=== PATIENT | female | born 1990 | race Caucasian/White ===

== ENCOUNTER → 2016-07-15 | Outpatient (CLI) | payer BC ==
--- NOTE | 2016-07-15 17:08 | US ---
EXAMINATION TYPE: US OB anatomy transabd DATE OF EXAM: 07/15/2016 4:30 PM COMPARISON: NONE HISTORY: LGA TECHNIQUE: Transabdominal (TA) EXAM MEASUREMENTS: GESTATIONAL AGE / DATING Physician Established: (20 weeks/0 days) EDC: 12/02/2016 Dates by LMP: (20 weeks/0 days) EDC: 12/02/2016 Dates by First Scan: (19 weeks/6 days) EDC: 12/03/2016 Dates by Current Scan for: (18 weeks/6 days) EDC: 12/10/2016 SURVEY IUP: Single PLACENTA: Anterior PREVIA: No previa LOUIE: 12.0 cm Normal CERVICAL LENGTH (transabdominal: norm > 3.0cm): 3.1 cm BIOMETRY PRESENTATION: Variable LIE: Transverse lie with head maternal right BPD: 4.5 cm 19 weeks / 4 days HC: 16.4 cm 19 weeks / 1 days AC: 13.8 cm 19 weeks / 1 days FL: 2.8 cm 18 weeks / 4 days ESTIMATED WEIGHT IN GRAMS: 265 grams ESTIMATED WEIGHT IN LBS/OZS: 0 lbs. 9 oz. WEIGHT PERCENTAGE BASED ON ESTABLISHED DATE: 6 % HC/AC: 1.19 FL/AC: 20 HEART RATE: 139 bpm RHYTHM: Normal ANATOMY SEEN (within normal limits): * Lateral Vent (< 1 cm) 0.7 cm * Cisterna Magna (< 1.1 cm) 0.2 cm * Nuchal Fold (< 0.6 cm) 0.2 cm * Cerebellum (varies with age) 2.0 cm Choroid Plexus (bilateral) Midline Falx Cavus Septi Pellucidi Four Chamber Heart Outflow tracts: LVOT/RVOT Stomach Situs Nose / Lips Diaphragm Kidneys (bilateral) --mildly prominent renal pelves Bladder Cord Insert Three Vessel Cord Longitudinal Spine Transverse Spine Arms (bilateral) Legs (bilateral) IMPRESSION: viable iup, growth at 6%, left msg for Ann Marie at office re: growth percentile
== END | disposition home or self-care (01) ==
LOC: RADUSWWP 16:00
PROVIDERS: ATTEND Obstetrics & Gynecology
DX: O36.62X0 Maternal care for excessive fetal growth, second trimester, not applicable or unspecified (principal); Z3A.20 20 weeks gestation of pregnancy
CPT/HCPCS: 76811

== ENCOUNTER → 2016-10-08 | Outpatient (CLI) | payer BC ==
--- NOTE | 2016-10-09 08:47 | US ---
EXAMINATION TYPE: US OB anatomy transabd DATE OF EXAM: 10/08/2016 COMPARISON: Previous exam second of July 2016 HISTORY: N28.89 DILATION OF OBDULIO RENAL PELVIS previous abnormal exam TECHNIQUE: Transabdominal pelvic ultrasound scanning EXAM MEASUREMENTS: GESTATIONAL AGE / DATING Physician Established: (32 weeks/1 days) EDC: 12/02/16 Dates by LMP: (32 weeks/1 days) EDC: 12/02/16 Dates by First Scan: (32 weeks/0 days) EDC: 12/03/16 Dates by Current Scan for: (31 weeks/ 2 days) EDC: 12/08/16 SURVEY IUP: Single PLACENTA: Anterior PREVIA: No previa LOUIE: 13.5 cm CERVICAL LENGTH (transabdominal: norm > 3.0cm): 3.2 cm BIOMETRY PRESENTATION: Vertex LIE: Longitudinal BPD: 8.0 cm 32 weeks / 1 days HC: 29.3 cm 32 weeks / 2 days AC: 28.3 cm 32 weeks / 2 days FL: 5.9 cm 30 weeks / 5 days ESTIMATED WEIGHT IN GRAMS: 1844 grams ESTIMATED WEIGHT IN LBS/OZS: 4 lbs. 1 oz. WEIGHT PERCENTAGE BASED ON ESTABLISHED DATE: 29 % HC/AC: 1.0 FL/AC: 20.9 HEART RATE: 137 bpm RHYTHM: Normal ANATOMY SEEN (within normal limits): Midline Falx Cavus Septi Pellucidi Four Chamber Heart Stomach Situs Nose / Lips Diaphragm Kidneys (bilateral) left dilation measures 0.9cm, right measures 0.6cm Bladder Three Vessel Cord Longitudinal Spine Transverse Spine ANATOMY NOT SEEN: * Lateral Vent (< 1 cm) cm * Cisterna Magna (< 1.1 cm) cm * Nuchal Fold (< 0.6 cm) cm * Cerebellum (varies with age) cm Choroid Plexus (bilateral) Cord Insert Arms (bilateral) Legs (bilateral) Outflow tracts: LVOT/RVOT Dilation of renal pelvis measurements above. IMPRESSION: Dilation of the renal pelves persists as described. Limited survey. Single viable intrauterine corresponding to ultrasound age 31 weeks 2 days with estimated date of delivery November, estimated weight has improved percentagewise as compared to prior
== END | disposition home or self-care (01) ==
LOC: RADUSWWP 15:39
PROVIDERS: ATTEND Obstetrics & Gynecology
DX: O99.89 Other specified diseases and conditions complicating pregnancy, childbirth and the puerperium (principal); N28.89 Other specified disorders of kidney and ureter; Z3A.31 31 weeks gestation of pregnancy
CPT/HCPCS: 76811

== ENCOUNTER → 2016-10-28 | Outpatient (CLI) | payer BC ==
--- NOTE | 2016-10-29 07:57 | US ---
EXAMINATION TYPE: US OB anatomy transabd DATE OF EXAM: 10/28/2016 COMPARISON: US HISTORY: N28.89 DILATION B/L RENAL PELVIS Dilation of bilateral renal pelvis TECHNIQUE: Transabdominal (TA) EXAM MEASUREMENTS: GESTATIONAL AGE / DATING Physician Established: (35 weeks/0 days) EDC: 12/02/2016 Dates by LMP: Unknown Dates by First Scan: (34 weeks/6 days) EDC: 12/03/2016 Dates by Current Scan for: (34 weeks/2 days) EDC: 12/07/2016 SURVEY IUP: Single PLACENTA: Anterior PREVIA: No previa LOUIE: 15.6 cm Normal CERVICAL LENGTH (transabdominal: norm > 3.0cm): 3.6 cm BIOMETRY PRESENTATION: Vertex BPD: 8.5 cm 34 weeks / 3 days HC: 31.1 cm 34 weeks / 5 days AC: 30.4 cm 34 weeks / 2 days FL: 6.6 cm 33 weeks / 6 days ESTIMATED WEIGHT IN GRAMS: 2386 grams ESTIMATED WEIGHT IN LBS/OZS: 5 lbs. 4 oz. HC/AC: 1.02 Normal FL/AC: 21.61 Normal HEART RATE: 143 bpm RHYTHM: Normal ANATOMY SEEN (within normal limits): Midline Falx Cavus Septi Pellucidi Outflow tracts: LVOT/RVOT Stomach Situs Nose / Lips Diaphragm Bladder Cord Insert Three Vessel Cord Legs (bilateral) ANATOMY SEEN (does not appear within normal limits): Kidneys (bilateral): right renal pelvis 0.9cm, left renal pelvis 0.9cm (bilateral) : There are dilate d renal pelves bilaterally. Follow-up is recommended. ANATOMY NOT SEEN: Due to advanced age, crowding * Lateral Vent (< 1 cm) cm * Cisterna Magna (< 1.1 cm) cm * Nuchal Fold (< 0.6 cm) cm * Cerebellum (varies with age) cm Choroid Plexus (bilateral) Four Chamber Heart Longitudinal Spine Transverse Spine Arms (bilateral) Viable single IUP measuring 34 weeks 2 days with a heart rate of 143bpm and an estimated delivery vanessa e of 12/07/2016, dilated bilateral renal pelvis. IMPRESSION: 1. Dilated renal pelves bilaterally. Follow-up is recommended. 2. Due to the age and there is limitation on small parts evaluation. 3. Single intrauterine gestation estimated at 34 weeks 2 days gestation. Cardiac activity measures 14 3 bpm. Calculated EDC is 12/07/2016 based on the current ultrasound measurements. Correlate this with her physician established EDC of 12/02/2016.
== END | disposition home or self-care (01) ==
LOC: RADUSWWP 15:39
PROVIDERS: ATTEND Obstetrics & Gynecology
DX: O99.89 Other specified diseases and conditions complicating pregnancy, childbirth and the puerperium (principal); N28.89 Other specified disorders of kidney and ureter; Z3A.34 34 weeks gestation of pregnancy
CPT/HCPCS: 76811

== ENCOUNTER 2016-12-02 08:01 | Inpatient (IN) | payer BC ==
[2016-12-07] MEDS ORDERED: CARBOPROST TROMETHAMINE 250 MCG/ML 1 ML AMP IM PRN (01:25)
[2016-12-07] MEDS ORDERED: OXYTOCIN 20 UNITS/1000 ML NS 1,000 ML IV SCH ×2 (01:25→06:00)
[2016-12-07] MEDS ORDERED: LIDOCAINE 1% (PF) 10 MG/ML (30 ML SDV) SQ PRN (01:25)
[2016-12-07] MEDS ORDERED: TERBUTALINE 1 MG/ML VIAL SQ PRN (01:25)
[2016-12-07] MEDS ORDERED: METHYLERGONOVINE 0.2 MG/ML 1 ML AMP IM PRN (01:25)
[2016-12-07] MEDS ORDERED: OXYTOCIN 10 UNIT/ML 1 ML VIAL IM PRN (01:25)
[2016-12-07 01:32] VITALS: BMI 36.2
[2016-12-07 01:41] LABS: Basophils % (A) 0 %; CH 30.5; CHCM 33.3; Eosinophils # (A) 0.1 k/uL (0-0.7); Eosinophils % (A) 1 %; HCT 36.7 % (34.0-46.0); HDW 2.57; HGB 12.1 gm/dL (11.4-16.0); Luc # (Auto) 0.33; Luc % (Auto) 3; Lymphocytes # (A) 1.4 k/uL (1.0-4.8); Lymphocytes % (A) 13 %; MCH 30.2 pg (25.0-35.0); MCHC 32.8 g/dL (31.0-37.0); Mean Platelet Volume 8.8; Monocytes # (A) 0.5 k/uL (0-1.0); Monocytes % (A) 5 %; Neutrophils # (A) 8.4 k/uL (1.3-7.7); Neutrophils % (A) 79 %; RBC 3.99 m/uL (3.80-5.40); RDW 13.7 % (11.5-15.5); WBC 10.7 k/uL (3.8-10.6); WBC (Perox) 10.68
[2016-12-07] MEDS: LACTATED RINGERS 1,000 ML IV SCH ×2 (01:45→02:24)
[2016-12-07] MEDS ORDERED: diphenhydrAMINE 50 MG/ML 1 ML VIAL IVP PRN ×2 (05:46)
[2016-12-07] MEDS ORDERED: LANOLIN CREAM 5 GM TUBE TOPICAL PRN (05:46)
[2016-12-07] MEDS ORDERED: WITCH HAZEL 1 EACH MED..PAD TOPICAL PRN (05:46)
[2016-12-07] MEDS ORDERED: ACETAMINOPHEN TAB 325 MG TAB PO PRN (05:46)
[2016-12-07] MEDS ORDERED: diphenhydrAMINE 50 MG CAP PO PRN (05:46)
[2016-12-07] MEDS ORDERED: HYDROCORTISONE 2.5% RECTAL CREAM 30 GM TUBE RECTAL PRN (05:46)
[2016-12-07] MEDS ORDERED: diphenhydrAMINE 25 MG CAP PO PRN (05:46)
[2016-12-07] MEDS ORDERED: ZOLPIDEM 5 MG TAB PO PRN (05:46)
[2016-12-07] MEDS ORDERED: SIMETHICONE 80 MG CHEWABLE PO PRN (05:46)
[2016-12-07] MEDS ORDERED: BENZOCAINE/MENTHOL SPRAY 1 GM/SPRAY AEROSOL TOPICAL PRN (05:46)
[2016-12-07] MEDS ORDERED: DIPH,PERTUS(ACELL)TETVAC-LF 0.5 ML VIAL IM ONE (06:36)
[2016-12-07] MEDS: IBUPROFEN 600 MG TAB PO PRN ×3 (06:46→23:00)
[2016-12-07] MEDS ORDERED: BUPIVACAINE (PF) 0.25% 25 ML, fentaNYL (PF) 200 MCG in SODIUM CHLORIDE 0.9% 71 ML EPIDURAL ONE (07:00)
[2016-12-07 07:27] VITALS: RESP 16
--- NOTE | 2016-12-07 08:39 | P.HPOB ---
History of Present Illness H&P Date: 12/07/16 Chief Complaint: Intrauterine at term Patient is a 18-year-old at 40 weeks 5 days gestation who ryes in active labor. She has been taking is rupture members earlier this evening and she is forest every 2-3 minutes with cervical change. She is dilated to 5 cm this time. Her course had been unremarkable and she reports that she has had a very easy in good . She voices no other complaints this morning and is again in active labor. Pertinent labs include A- blood type rubella was immune hepatitis B surface antigen and RPR were both negative. On physical exam vital signs are stable and afebrile. Heart regular, lungs clear, extremities without pain. Osteopathic exams unremarkable. Abdomen is soft gravid uterus is noted in the heart tones are in the 130s to 150s have been reactive. Assessment intrauterine at term. Plan expect spontaneous vaginal delivery. She plans to use epidural for analgesia. Past Medical History Past Medical History: No Reported History History of Any Multi-Drug Resistant Organisms: None Reported Past Surgical History: No Surgical Hx Reported Past Anesthesia/Blood Transfusion Reactions: No Reported Reaction Past Psychological History: No Psychological Hx Reported Smoking Status: Never smoker - Past Family History Mother Family Medical History: No Reported History Medications and Allergies Home Medications Medication Instructions Recorded Confirmed Type Pnv No.95/Ferrous Fum/Folic AC 1 each PO DAILY 12/07/16 12/07/16 History [ Multivitamin Tablet] Allergies Allergy/AdvReac Type Severity Reaction Status Date / Time No Known Allergies Allergy Verified 12/07/16 01:25 Exam Osteopathic Statement: *. No significant issues noted on an osteopathic structural exam other than those noted in the History and Physical/Consult. - Vital Signs Vital signs: Vital Signs Temp Pulse Resp BP Pulse Ox 12/07/16 07:30 78 16 12/07/16 07:10 97.2 F L 78 16 126/64 12/07/16 06:40 83 15 124/69 12/07/16 06:10 94 15 129/65 12/07/16 05:55 87 15 125/61 12/07/16 05:40 90 15 98/49 12/07/16 05:25 87 15 130/63 12/07/16 05:10 99 F 100 15 129/59 12/07/16 01:24 98.1 F 67 18 139/69 98 Intake and Output 12/06/16 12/07/16 12/07/16 22:59 06:59 14:59 Other: Weight 87.09 kg Results Result Diagrams: 12/07/16 01:30 Abnormal Lab Results - Last 24 Hours (Table) 12/07/16 Range/Units 01:30 WBC 10.7 H (3.8-10.6) k/uL Neutrophils # 8.4 H (1.3-7.7) k/uL
--- NOTE | 2016-12-07 08:40 | P.PROBDLV ---
Vaginal Delivery Note - . Vaginal Delivery Note: Patient progressed complete and pushing with spontaneous vaginal delivery of a viable male over an intact perineum. Following delivery of the head anterior posterior shoulders were easily delivered and a nuchal cord 1 was easily reduced. Once baby was fully delivered mouth nares were bulb suctioned and baby was placed on mother's abdomen where the umbilical cord was allowed to pulsate for 30 seconds prior to clamping and cutting. Once this was accomplished placenta was delivered intact. It is noted that she has bilateral vaginal wall lacerations which were repaired in running fashion with 3-0 Vicryl following 1% Xylocaine for analgesia. Following delivery both mother and baby are stable. scores were 8 and 9 at one and 5 minutes respectively and the weight was 7 lbs. 3 oz. Both mother and baby are stable following delivery.
[2016-12-07] MEDS ORDERED: Rhogam IMMUNE GLOBULIN 1,500 UNIT/1 ML IM ONE (17:32)
[2016-12-07] MEDS: SENNOSIDES-DOCUSATE SODIUM 1 EACH TAB PO SCH (21:51)
[2016-12-08] MEDS: IBUPROFEN 600 MG TAB PO PRN ×2 (05:05→12:01)
--- NOTE | 2016-12-08 06:37 | P.PNOBGVD ---
Subjective - Subjective Patient reports: Reports appetite normal, Reports voiding normally, Reports pain well controlled, Reports ambulating normally : doing well Objective - Latest Vital Signs Latest vital signs: Vital Signs Temp Pulse Resp BP 12/08/16 00:00 97.6 F 88 16 122/65 12/07/16 15:16 98.2 F 92 16 124/65 12/07/16 07:30 78 16 12/07/16 07:10 97.2 F L 78 16 126/64 12/07/16 06:40 83 15 124/69 Intake and Output 12/07/16 12/07/16 12/08/16 14:59 22:59 06:59 Other: # Voids 2 - Exam Lungs: bilateral: normal Chest: Normal S1, Normal S2 Extremities: Present: normal Abdomen: Present: normal appearance, soft Uterus: Present: normal, firm Assessment and Plan (1) Normal labor and delivery Narrative/Plan: day #1. Patient is resting without complaints wishes to go home. Vital signs are stable she is afebrile. Uterus is firm nontender she's having normal lochia. My impression is this is normal course. Plan is to continue routine care discharge home later today. Current Visit: Yes Status: Acute Code(s): O80 - ENCOUNTER FOR FULL-TERM UNCOMPLICATED DELIVERY SNOMED Code(s): 43914303
--- NOTE | 2016-12-08 06:39 | P.DS ---
Providers Date of admission: 12/07/16 01:01 Expected date of discharge: 12/08/16 Attending physician: Farooq Hay Primary care physician: Berta Dickerson - Discharge Diagnosis(es) (1) Normal labor and delivery Current Visit: Yes Status: Acute Hospital Course: Please see dictated H&P for intimate details of this patient's admission. Brief summary this is a pleasant 26-year-old 1 para 0 female 40-1/2 weeks gestation admitted to labor and delivery in active labor. Patient quickly goes on to have a vaginal delivery viable male . Please see dictated delivery note. her 1 patient without complaints she wishes to go home felt be stable for discharge home follow up with me in 6 weeks. Procedures: Normal spontaneous vaginal delivery. Patient Condition at Discharge: Good Plan - Discharge Summary New Discharge Prescriptions: New Ibuprofen [Motrin] 600 mg PO Q6HR PRN #40 tab PRN Reason: Mild Pain Or Fever >= 100.5 No Action Pnv No.95/Ferrous Fum/Folic AC [ Multivitamin Tablet] 1 each PO DAILY Discharge Medication List Pnv No.95/Ferrous Fum/Folic AC [ Multivitamin Tablet] 1 each PO DAILY [History] Ibuprofen [Motrin] 600 mg PO Q6HR PRN #40 tab 12/08/16 [Rx] Follow up Appointment(s)/Referral(s): Farooq Hay MD [STAFF PHYSICIAN] - 01/18/17 10:45 am Patient Instructions/Handouts: Vaginal Delivery (DC) Activity/Diet/Wound Care/Special Instructions: No intercourse or anything per vagina for 6 weeks. Please call if any fever, chills, excessive vaginal bleeding, and/or abdominal pain. Discharge Disposition: HOME SELF-CARE
[2016-12-08 09:26] VITALS: BP 114/68; PULSE 71; TEMP 98.1
[2016-12-08] MEDS: SENNOSIDES-DOCUSATE SODIUM 1 EACH TAB PO SCH (09:26)
== END 2016-12-08 16:45 | disposition home or self-care (01) | DRG 775 ==
LOC: 4FBP 12-07 01:01
PROVIDERS: ADMIT Obstetrics & Gynecology; ATTEND Obstetrics & Gynecology
PROC: 0UQGXZZ Repair Vagina, External Approach (ICD-10-PCS; principal; 2016-12-07)
PROC: 10E0XZZ Delivery of Products of Conception, External Approach (ICD-10-PCS; principal; 2016-12-07)
DX: O69.81X0 Labor and delivery complicated by cord around neck, without compression, not applicable or unspecified (principal); O71.4 Obstetric high vaginal laceration alone; Z37.0 Single live birth; Z3A.40 40 weeks gestation of pregnancy
CPT/HCPCS: 85025; 85461; 88307; 90471; 90715

== ENCOUNTER → 2019-05-17 | Outpatient (CLI) | payer BC ==
--- NOTE | 2019-05-18 04:41 | US ---
EXAMINATION TYPE: US transvaginal plus Dopplers DATE OF EXAM: 05/17/2019 COMPARISON: NONE CLINICAL HISTORY: 28-year-old female R10.2 Pelvic pain. TECHNIQUE: Transvaginal (TV). Color Doppler and spectral waveform analysis of the ovarian arteries and veins. Date of LMP: 3 WEEKS AGO FINDINGS: EXAM MEASUREMENTS: Uterus: 7.1 x 3.3 x 4.2 cm Endometrial Stripe: 0.6 cm Right Ovary: 3.1 x 2.3 x 2.0 cm for a volume of 7.5 mL. Left Ovary: 2.8 x 1.9 x 2.1 cm for a volume of 5.6 mL. 1. Uterus: Anteverted, wnl 2. Endometrium: wnl with trilaminar configuration. 3. Right Ovary: Prominent follicular changes present. 4. Left Ovary: Prominent follicular change is present. Spectral, color and waveform doppler imaging shows good arterial and venous flow within the ovaries ; there is no evidence for ovarian torsion. Some superimposed venous flow on the left. 5. Bilateral Adnexa: wnl 6. Posterior cul-de-sac: no free fluid IMPRESSION: 1. Numerous small follicles throughout the ovaries but with overall normal ovarian size. 2. No sonographic evidence for ovarian torsion. 3. Normal thickness endometrial stripe.
== END | disposition home or self-care (01) ==
LOC: RADUSWWP 16:17
PROVIDERS: ATTEND Obstetrics & Gynecology
DX: R10.2 Pelvic and perineal pain (principal)
CPT/HCPCS: 76830

== ENCOUNTER → 2020-10-27 | Outpatient (CLI) | payer BC ==
[2020-10-27 14:54] LABS: HCT 34.6 % (37.2-46.3); HGB 11.2 g/dL (12.0-15.0); MCH 32.1 pg (27.0-32.0); MCHC 32.4 g/dL (32.0-37.0); MCV 99.1 fL (80.0-97.0); Mean Platelet Volume 10.4 fL (9.5-12.2); Platelet Count 163 X 10*3/uL (140-440); RBC 3.49 X 10*6/uL (4.10-5.20); RDW 13.2 % (11.5-14.5)
== END | disposition home or self-care (01) ==
LOC: LABWHC1 08:30
PROVIDERS: ATTEND Obstetrics & Gynecology
DX: Z34.82 Encounter for supervision of other normal pregnancy, second trimester (principal)
CPT/HCPCS: 36415; 82950; 85027; 86850

== ENCOUNTER 2021-01-20 05:55 | Inpatient (IN) | payer BC ==
--- NOTE | 2021-01-19 07:11 | P.HPOB ---
History of Present Illness H&P Date: 01/19/21 Chief Complaint: Breech presentation for section This patient is a pleasant 30-year-old 2 para 1 female estimated date of confinement 01/25/2021 estimated gestational age 39-2/7 weeks who presents to labor and delivery for primary section due to persistent breech presentation. Patient's care has been uncomplicated with the exception of persistent breech. Patient I did discuss trial of version versus outright section and she wishes to proceed with section for delivery. Review of Systems Genitourinary: Reports Menstruation: Reports amenorrhea Past Medical History Past Medical History: Asthma Additional Past Medical History / Comment(s): Hx Childhood Asthma, no problems since. History of Any Multi-Drug Resistant Organisms: None Reported Past Surgical History: No Surgical Hx Reported Additional Past Surgical History / Comment(s): Jeff teeth extracted. Past Anesthesia/Blood Transfusion Reactions: No Reported Reaction Additional Past Anesthesia/Blood Transfusion Reaction / Comment(s): "Slight motion sickness - nausea only." Past Psychological History: Anxiety Smoking Status: Never smoker Past Alcohol Use History: None Reported Past Drug Use History: None Reported - Past Family History Mother Family Medical History: No Reported History Medications and Allergies Home Medications Medication Instructions Recorded Confirmed Type Pnv No.95/Ferrous Fum/Folic AC 1 each PO DAILY 12/07/16 01/12/21 History [ Multivitamin Tablet] Allergies Allergy/AdvReac Type Severity Reaction Status Date / Time No Known Allergies Allergy Verified 01/12/21 14:10 Exam - OBG Physical Exam Abdomen: bowel sounds normal, no diffuse tenderness, no bruit present, no guarding noted, no hepatomegaly, no splenomegaly, no mass Vulva: both: normal Vagina: normal moisture, no discharge Cervix: no lesion, no discharge Uterus: enlarged (Fundal height 39 cm) Results blood work shows she is A negative, rubella immune, RPR nonreactive, hepatitis B negative, Glucola was 109, group B strep was negative, ultrasounds shows normal growth but persistent breech presentation. Patient received RhoGAM on November 03 Assessment and Plan Assessment: This is a pleasant 30-year-old 2 para 1 female 39-2/7 weeks gestation who is admitted for primary section due to persistent breech presentation. Plan is primary low transverse section. I've discussed the surgery in detail with the patient including risks of infection, bleeding, possible injury to bowel, bladder, vessels, and/or other organs. All the patient's questions been answered and a written consent obtained. (1) 39 weeks gestation of Status: Acute Code(s): Z3A.39 - 39 WEEKS GESTATION OF SNOMED Code(s): 84121389 (2) Breech presentation Status: Acute Code(s): O32.1XX0 - MATERNAL CARE FOR BREECH PRESENTATION, UNSP SNOMED Code(s): 1298801 (3) Rh negative status during Status: Acute Code(s): O26.899 - OTH RELATED CONDITIONS, UNSPECIFIED TRIMESTER; Z67.91 - UNSPECIFIED BLOOD TYPE, RH NEGATIVE SNOMED Code(s): 938269498
[2021-01-20] MEDS ORDERED: LACTATED RINGERS 1,000 ML IV SCH (06:08)
[2021-01-20] MEDS ORDERED: CITRIC ACID-SODIUM CITRATE 15 ML CUP PO ONE (06:08)
[2021-01-20] MEDS ORDERED: LACTATED RINGERS 1,000 ML IV ONE (06:08)
[2021-01-20 07:05] LABS: Basophils % (A) 0 %; Eosinophils # (A) 0.1 k/uL (0-0.7); Eosinophils % (A) 1 %; HGB 12.6 gm/dL (11.4-16.0); Lymphocytes # (A) 0.9 k/uL (1.0-4.8); Lymphocytes % (A) 13 %; Mean Platelet Volume 8.1; Monocytes # (A) 0.4 k/uL (0-1.0); Monocytes % (A) 5 %; Neutrophils # (A) 5.3 k/uL (1.3-7.7); Neutrophils % (A) 77 %; Platelet Count 182 k/uL (150-450); RBC 3.82 m/uL (3.80-5.40); RDW 14.1 % (11.5-15.5); WBC 6.8 k/uL (3.8-10.6)
[2021-01-20] MEDS ORDERED: NALBUPHINE 10 MG/ML (1 ML AMP) ONE (07:46)
[2021-01-20] MEDS ORDERED: PHENYLEPHRINE-0.9% NACL SYG 1,000 MCG/10 ML SYRINGE ONE (07:46)
[2021-01-20] MEDS ORDERED: MORPHINE SULFATE (PF) 0.3 MG/0.3 ML SYR ONE (07:46)
[2021-01-20] MEDS ORDERED: OXYTOCIN 30 UNITS/500 ML NS BAG IV ONE (07:46)
[2021-01-20] MEDS ORDERED: ONDANSETRON 4 MG/2 ML VIAL ONE (07:46)
[2021-01-20] MEDS ORDERED: KETOROLAC 15 MG/ML 1 ML VIAL ONE (07:46)
--- NOTE | 2021-01-20 08:33 | P.OP ---
Date of Procedure: 01/20/21 Preoperative Diagnosis: #1: 39-3/7 week intrauterine . #2: Persistent breech presentation. Postoperative Diagnosis: Same, double footling breech Procedure(s) Performed: Primary low transverse section Anesthesia: spinal Surgeon: Farooq Hay Respiratory Therapy Director #1: Mau Champagne Estimated Blood Loss (ml): 500 Pathology: none sent Condition: stable Disposition: floor Indications for Procedure: Please see dictated H&P for intimate details of this patient's admission. Brief summary this pleasant 30-year-old 2 para 1 female 39-3/7 weeks admitted to labor and delivery for primary section due to persistent breech. Patient I did discuss possible cephalic version versus outright she has chosen for delivery. She does understand this procedure and risks and risks of infection, bleeding, possible injury bowel, bladder, vessels, and/or other organs. All the patient's questions are answered written consent obtained. Operative Findings: This is a vigorous viable male Apgars were 8,9 at 0802 hrs. Infant was double footling breech sacrum left Description of Procedure: This patient has a Larson catheter placed to straight drain. She is subsequently taken to the operating room where she is sat up and spinal anesthetic is administered without incident. With adequate level of anesthesia she has abdominal prep and drape. Scalpels and taken Pfannenstiel skin incision is then made. A second scalpel is taken down the fascia the fascia scored with a knife. Fascial incision extended bilaterally using Su scissors. Fascia is then dissected sharply off the rectus muscles. Rectus muscles are the peritoneum identified and entered sharply. Peritoneal incision extended superior and inferior without difficulty. Bladder blade is then placed. Bladder peritoneum was taken sharply off the lower uterine segment. Scalpels taken low transverse uterine incision is then made. Using a hemostat I then gently into the uterine cavity. There is loss of copious amount of clear fluid. Inspection of the uterus shows a to be double footling breech sacrum left. I grabbed both feet and using the usual breech maneuvers deliver the baby up to the shoulders. Then gently using the usual breech maneuvers we have delivery of the rest of this infant's body. This is a vigorous viable male Apgars are 8 and 9 at 0802 hrs. Infant has spontaneous respiration and cry and grossly appears normal. After delivery of the infant the umbilical cords doubly clamped and cut appears to be trivascular. Placenta is then manually extracted intact. Uterus is then externalized and uterine incision demarcated with Larson clamps. Uterus is then closed using 0 Vicryl running locked fashion 2 layers. Excellent hemostasis is noted. Bladder peritoneum was then reapproximated using a 3-0 Vicryl usual fashion. Excess fluid is removed from the abdomen and pelvis. Uterus tubes and ovary appear normal for term gestation. Uterus is then placed back into the abdomen. Parietal peritoneum was then identified and closed in 0 Vicryl running fashion. Rectus muscles reapproximate 0 Vicryl interrupted fashion. Fascial incision is then closed using 0 PDS. Fascial incision is intact and hemostatic. Subcutaneous tissue is then closed using a 3-0 Vicryl. Skin is and closed using loan. All counts are correct 3. There are no complications. Infant and mother are stable in delivery room.
[2021-01-20] MEDS ORDERED: NALOXONE 0.4 MG/ML 1 ML VIAL IV PRN (08:42)
[2021-01-20] MEDS ORDERED: LANOLIN CREAM 5 GM TUBE TOPICAL PRN (08:42)
[2021-01-20] MEDS ORDERED: OXYTOCIN 30 UNITS/500 ML NS 30 UNIT in SALINE 1 500ML.BAG IV SCH (08:42)
[2021-01-20] MEDS ORDERED: ONDANSETRON 4 MG/2 ML VIAL IVP PRN (08:42)
[2021-01-20] MEDS ORDERED: diphenhydrAMINE 50 MG/ML 1 ML VIAL IVP PRN (08:42)
[2021-01-20] MEDS ORDERED: SIMETHICONE 80 MG CHEWABLE PO PRN (08:42)
[2021-01-20] MEDS ORDERED: ZOLPIDEM 5 MG TAB PO PRN (08:42)
[2021-01-20] MEDS ORDERED: diphenhydrAMINE 25 MG CAP PO PRN (08:42)
[2021-01-20] MEDS ORDERED: METOCLOPRAMIDE 5 MG/ML 2 ML VIAL IVP PRN (08:42)
[2021-01-20] MEDS: LACTATED RINGERS 1,000 ML IV SCH ×2 (13:12→18:20)
[2021-01-20] MEDS: KETOROLAC 15 MG/ML 1 ML VIAL IVP SCH ×2 (16:36→23:37)
[2021-01-20] MEDS: ACETAMINOPHEN TAB 500 MG TAB PO PRN (17:35)
[2021-01-20] MEDS: Rhogam IMMUNE GLOBULIN 1,500 UNIT/1 ML IM ONE ×2 (17:37→17:39)
[2021-01-20] MEDS: SERTRALINE 50 MG TAB PO SCH (20:24)
[2021-01-21] MEDS: LACTATED RINGERS 1,000 ML IV SCH ×2 (03:23→21:04)
[2021-01-21] MEDS: ACETAMINOPHEN TAB 500 MG TAB PO PRN ×3 (04:31→19:43)
[2021-01-21] MEDS: KETOROLAC 15 MG/ML 1 ML VIAL IVP SCH ×3 (05:37→13:23)
[2021-01-21 05:39] LABS: Basophils % (A) 0 %; Eosinophils # (A) 0.1 k/uL (0-0.7); Eosinophils % (A) 1 %; HCT 36.2 % (34.0-46.0); HGB 12.1 gm/dL (11.4-16.0); Lymphocytes # (A) 0.7 k/uL (1.0-4.8); Lymphocytes % (A) 6 %; MCH 32.9 pg (25.0-35.0); MCHC 33.5 g/dL (31.0-37.0); MCV 98.4 fL (80.0-100.0); Mean Platelet Volume 8.2; Monocytes # (A) 0.4 k/uL (0-1.0); Monocytes % (A) 4 %; Neutrophils # (A) 10.2 k/uL (1.3-7.7); Neutrophils % (A) 88 %; Platelet Count 187 k/uL (150-450); RBC 3.68 m/uL (3.80-5.40); RDW 14.3 % (11.5-15.5); WBC 11.6 k/uL (3.8-10.6)
--- NOTE | 2021-01-21 06:57 | P.PNOBGPC ---
Subjective - Subjective Patient reports: Reports appetite normal, Reports voiding normally, Reports pain well controlled, Reports ambulating normally : doing well Objective - Vital Signs Latest vital signs: Vital Signs Temp Pulse Resp BP Pulse Ox 01/21/21 04:00 98.3 F 74 16 100/67 97 01/21/21 00:00 99.1 F 67 16 99/65 97 01/20/21 20:00 97.6 F 80 16 100/66 96 01/20/21 16:00 98.6 F 77 18 108/67 96 01/20/21 12:00 97.8 F 59 L 17 109/57 96 01/20/21 10:28 98.2 F 58 L 17 107/59 97 01/20/21 09:58 98.0 F 73 17 107/62 98 01/20/21 09:28 63 17 134/56 98 01/20/21 09:12 57 L 17 103/62 98 01/20/21 08:58 59 L 17 98/57 98 01/20/21 08:43 75 17 113/56 98 01/20/21 08:42 99 01/20/21 08:28 97.2 F L 81 17 105/63 98 Intake and Output 01/20/21 01/20/21 01/21/21 14:59 22:59 06:59 Intake Total 1700 Output Total 1950 800 700 Balance -250 -800 -700 Intake: IV 500 Oral 1200 Output: Urine 1950 800 700 Uretheral (Larson) 400 Other: Voiding Method Indwelling Catheter Indwelling Catheter # Voids 1 - Exam Lungs: bilateral: normal Chest: Normal S1, Normal S2 Extremities: Present: normal Abdomen: Present: normal appearance, soft. Absent: distention, tenderness Incision: Present: normal, dry, intact Uterus: Present: normal, firm - Labs Labs: Abnormal Lab Results - Last 24 Hours (Table) 01/20/21 01/21/21 Range/Units 06:15 05:02 WBC 11.6 H (3.8-10.6) k/uL RBC 3.68 L (3.80-5.40) m/uL Neutrophils # 10.2 H (1.3-7.7) k/uL Lymphocytes # 0.9 L 0.7 L (1.0-4.8) k/uL Assessment and Plan Assessment: Postoperative day #1. Patient is resting without new complaints. Vital signs are stable she is afebrile. Hemoglobin is 12.1. Incision is intact and dry. Patient is ambulating and urinating without difficulty. My impression this is a normal postoperative course. Plan is to encourage ambulation, continue regular diet, allow the patient to shower. Nothing continue routine postoperative care. (1) 39 weeks gestation of Current Visit: No Status: Acute Code(s): Z3A.39 - 39 WEEKS GESTATION OF SNOMED Code(s): 14941095 (2) Breech presentation Current Visit: No Status: Acute Code(s): O32.1XX0 - MATERNAL CARE FOR BREECH PRESENTATION, UNSP SNOMED Code(s): 5050702 (3) Rh negative status during Current Visit: No Status: Acute Code(s): O26.899 - OTH RELATED CONDITIONS, UNSPECIFIED TRIMESTER; Z67.91 - UNSPECIFIED BLOOD TYPE, RH NEGATIVE SNOMED Code(s): 871240260
[2021-01-21] MEDS: SENNOSIDES-DOCUSATE SODIUM 1 EACH TAB PO PRN ×2 (07:33→19:44)
--- NOTE | 2021-01-21 08:45 | P.PN ---
Progress Note - Text Progress Note Date: 01/21/21 (745) Anesthesia Postop day [1] Subjective: Status Post [section] with Duramorph. Patient seen and examined. [Doing well without complaint]. VAS [0]. [No nausea or vomiting or pruritus.]. [Afebrile]. [Gross lower extremity strength intact].. Without apparent anesthetic complications. Objective: Vital signs reviewed Heart: [Regular Rate] Lungs: [Good chest excursion] Abdomen: [Appears nondistended] Assessment: Status post [] with Duramorph postop day 1 Plan: Continue current care with your medical management.
[2021-01-21] MEDS: IBUPROFEN 600 MG TAB PO PRN ×3 (11:39→22:37)
[2021-01-21] MEDS: SERTRALINE 50 MG TAB PO SCH (19:45)
[2021-01-22] MEDS: ACETAMINOPHEN TAB 500 MG TAB PO PRN ×2 (02:10→08:13)
[2021-01-22] MEDS: IBUPROFEN 600 MG TAB PO PRN ×2 (04:04→12:38)
--- NOTE | 2021-01-22 06:47 | P.PNOBGPC ---
Subjective - Subjective Patient reports: Reports appetite normal, Reports voiding normally, Reports pain well controlled, Reports ambulating normally : doing well Objective - Vital Signs Latest vital signs: Vital Signs Temp Pulse Resp BP Pulse Ox 01/21/21 23:24 72 15 01/21/21 23:22 98.6 F 72 15 102/65 96 01/21/21 15:28 98.3 F 60 16 109/56 01/21/21 08:00 98.1 F 63 16 93/51 98 Intake and Output 01/21/21 01/21/21 01/22/21 14:59 22:59 06:59 Intake Total 500 Balance 500 Intake: Intake, IV Titration 500 Amount Oxytocin 30 Units/500 ml 500 Ns 30 unit In Saline 1 500ml.bag @ Per Protocol IV .Q0M [facility] Rx#:[id number] Other: Voiding Method Toilet - Exam Lungs: bilateral: normal Chest: Normal S1, Normal S2 Extremities: Present: normal Abdomen: Present: normal appearance, soft. Absent: distention, tenderness Incision: Present: normal, dry, intact Uterus: Present: normal, firm Assessment and Plan Assessment: Postoperative day #2. Patient is resting without complaints and wishes to go home. Vital signs are stable and she is afebrile. Uterus is firm nontender and she is having normal lochia. My impression this is a normal postoperative course. Plan is to continue routine postoperative care and discharge home later today. (1) 39 weeks gestation of Current Visit: No Status: Acute Code(s): Z3A.39 - 39 WEEKS GESTATION OF SNOMED Code(s): 04860928 (2) Breech presentation Current Visit: No Status: Acute Code(s): O32.1XX0 - MATERNAL CARE FOR BREECH PRESENTATION, UNSP SNOMED Code(s): 1308279 (3) Rh negative status during Current Visit: No Status: Acute Code(s): O26.899 - OTH RELATED CONDITIONS, UNSPECIFIED TRIMESTER; Z67.91 - UNSPECIFIED BLOOD TYPE, RH NEGATIVE SNOMED Code(s): 897537008
--- NOTE | 2021-01-22 06:53 | P.DS ---
Providers Date of admission: 01/20/21 05:55 Expected date of discharge: 01/22/21 Attending physician: Farooq Hay Primary care physician: Berta Dickerson - Discharge Diagnosis(es) (1) 39 weeks gestation of Current Visit: No Status: Acute (2) Breech presentation Current Visit: No Status: Acute (3) Rh negative status during Current Visit: No Status: Acute Hospital Course: Please see dictated H&P for intimate details of this patient's admission. Brief summary this pleasant 30-year-old 2 para 1 female 39-3/7 weeks admitted to labor and delivery for primary section for persistent breech presentation. Patient goes a primary low transverse section for viable male . Please see dictated operative note. Postoperatively the patient is doing well and on postoperative #2 spell to be stable for discharge home follow up with me in 1 week. Procedures: Primary low transverse section Patient Condition at Discharge: Good Plan - Discharge Summary Discharge Rx Participant: Yes New Discharge Prescriptions: New Ibuprofen [Motrin] 600 mg PO Q6H PRN #30 tab PRN Reason: Pain oxyCODONE HCL [OxyIR] 5 mg PO Q4HR PRN #18 tab PRN Reason: Pain Sertraline [Zoloft] 50 mg PO HS #30 tab No Action Pnv No.95/Ferrous Fum/Folic AC [ Multivitamin Tablet] 1 each PO DAILY Discharge Medication List Pnv No.95/Ferrous Fum/Folic AC [ Multivitamin Tablet] 1 each PO DAILY 0 12/07/16 [History] Ibuprofen [Motrin] 600 mg PO Q6H PRN #30 tab 01/22/21 [Rx] Sertraline [Zoloft] 50 mg PO HS #30 tab 01/22/21 [Rx] oxyCODONE HCL [OxyIR] 5 mg PO Q4HR PRN #18 tab 01/22/21 [Rx] Follow up Appointment(s)/Referral(s): Farooq Hay MD [STAFF PHYSICIAN] - 03/02/21 11:15 am (First Follow up appointment set for January 29 @ 8:45am) Patient Instructions/Handouts: (DC) Activity/Diet/Wound Care/Special Instructions: No heavy lifting or strenuous activity for 6 weeks. No intercourse or anything per vagina for 6 weeks. Please call if any fever, chills, excessive vaginal bleeding, and/or abdominal pain. Discharge Disposition: HOME SELF-CARE
[2021-01-22] MEDS: SENNOSIDES-DOCUSATE SODIUM 1 EACH TAB PO PRN (08:14)
[2021-01-22 08:37] VITALS: BP 99/55; PULSE 77; RESP 17; TEMP 98.9
== END 2021-01-22 13:45 | disposition home or self-care (01) | DRG 788 ==
LOC: 4FBP 05:55
PROVIDERS: ADMIT Obstetrics & Gynecology; ATTEND Obstetrics & Gynecology
PROC: 10D00Z1 Extraction of Products of Conception, Low, Open Approach (ICD-10-PCS; principal; 2021-01-20 08:00)
DX: O32.8XX0 Maternal care for other malpresentation of fetus, not applicable or unspecified (principal); O99.513 Diseases of the respiratory system complicating pregnancy, third trimester; O26.893 Other specified pregnancy related conditions, third trimester; O69.5XX0 Labor and delivery complicated by vascular lesion of cord, not applicable or unspecified; O99.343 Other mental disorders complicating pregnancy, third trimester; J45.909 Unspecified asthma, uncomplicated; F41.9 Anxiety disorder, unspecified; Z37.0 Single live birth; Z3A.39 39 weeks gestation of pregnancy; Z67.91 Unspecified blood type, Rh negative
CPT/HCPCS: 85025; 85461; 86850; 86900; 86901

== ENCOUNTER → 2022-10-27 | Outpatient (CLI) | payer BC ==
[2022-10-28 03:18] LABS: Gliadin AB IgA, Deaminated Negative (Negative); Gliadin AB IgA, Unit 3.9 U/mL; Gliadin AB IgG, Deaminated Negative (Negative); Gliadin AB IgG, Unit <0.4 U/mL
== END | disposition home or self-care (01) ==
LOC: LABWHC1 16:03
PROVIDERS: ATTEND Nurse Practitioner Family
DX: R19.4 Change in bowel habit (principal); R14.0 Abdominal distension (gaseous)
CPT/HCPCS: 36415; 83516; 85652; 86140